=== PATIENT | male | born 1965 | race Caucasian/White ===

== ENCOUNTER 2019-08-05 12:55 | Emergency (ER) | payer MEDICARE, MEDICAID ==
[2019-08-05] MEDS ORDERED: Sodium Chloride 0.9% 10 ML Syringe FLUSH PRN (13:25)
[2019-08-05] MEDS ORDERED: Midazolam 1 MG/ML 2 ML SDV IVPUSH ONE (13:25)
[2019-08-05] MEDS ORDERED: Sodium Chloride 0.9% 1,000 ML IV ONE (13:25)
[2019-08-05] MEDS ORDERED: Succinylcholine 200 MG/10 ML MDV IV ONE (13:27)
[2019-08-05] MEDS ORDERED: Etomidate 2 MG/ML 20 ML SDV IVPUSH ONE (13:27)
[2019-08-05] MEDS ORDERED: ePHEDrine 50 MG/ML SDV IVPUSH ONE ×2 (13:27→13:29)
--- NOTE | 2019-08-05 13:29 | EDM.PDOC ---
ED HPI GENERAL MEDICAL PROBLEM - General Chief Complaint: Respiratory Problem Stated Complaint: Respiratory distress Time Seen by Provider: 08/05/19 13:00 Source of Information: Reports: EMS, [facility] Records History Limitations: Reports: Respiratory Distress - History of Present Illness INITIAL COMMENTS - FREE TEXT/NARRATIVE: 53 YO WM arrived by EMS after suspected aspiration at lunch today from [facility]. Pt had initial SaO2-70% on NRB @15L upon arrival to ER. Pt in respiratory distress with initial BP 70/30's. Pt given ephedrine 10mg IV push x 2- BP improved to 100/60. Pt intubated with a 6.0 ET tube after attempt with 8 and 7 were unsuccessful due to tracheal stenosis. Pt afebrile. SaO2 100% BP still low so dopamine drip was started. Pt given 2mg Versed for sedation. Onset: Sudden Severity: Severe Improves with: Reports: None Worsens with: Reports: None Associated Symptoms: Reports: Cough, Shortness of Breath ED ROS GENERAL - Review of Systems Review Of Systems: See Below Constitutional: Reports: No Symptoms HEENT: Reports: No Symptoms Respiratory: Reports: Shortness of Breath Cardiovascular: Reports: Blood Pressure Problem Endocrine: Reports: No Symptoms GI/Abdominal: Reports: No Symptoms : Reports: No Symptoms Musculoskeletal: Reports: No Symptoms Skin: Reports: No Symptoms ED EXAM, GENERAL - Physical Exam Exam: See Below Exam Limited By: Respiratory Distress General Appearance: Alert, Anxious Head: Atraumatic, Normocephalic Neck: Normal Inspection, Supple, Non-Tender, Full Range of Motion Respiratory/Chest: Respiratory Distress, Decreased Breath Sounds Cardiovascular: Normal Peripheral Pulses, Regular Rate, Rhythm, No Edema, No Gallop, No JVD, No Murmur, No Rub GI/Abdominal: Normal Bowel Sounds, Soft, Non-Tender, No Organomegaly, No Distention, No Abnormal Bruit, No Mass Back Exam: Normal Inspection, Full Range of Motion, NT Extremities: Normal Inspection, Normal Range of Motion, Non-Tender, Normal Capillary Refill, No Pedal Edema Neurological: Alert, CN II-XII Intact Psychiatric: Normal Affect, Normal Mood Skin Exam: Warm, Dry, Intact, Normal Color, No Rash Lymphatic: No Adenopathy ED RESPIRATORY PROCEDURES - Endotracheal Intubation Time of Intubation: 13:00 ET Intubation Indication: Respiratory Failure Preparation: Suction, Balloon Tested, BVM Set Up, Difficult Airway Equip Pre-Oxygenation: Assisted with BVM, 100% FiO2 Anesthesia Meds: Etomidate, Succinylcholine Placement: Orotracheal Cords Visualized: Grade 1 ETT Size In mm: 6 Number of Attempts: 2 Confirmed By: CO2 Indicator, Bilateral Breath Sounds, Chest Xray Tube Secured By: By Provider Course - Orders/Labs/Meds Orders: Active Orders 24 hr Category Date Time Status CULTURE BLOOD [BC] Stat Lab 08/05/19 13:25 Ordered CULTURE BLOOD [BC] Stat Lab 08/05/19 13:25 Ordered DOPamine/Dextrose 5%-Water [DOPamine in D5W 400 MG/250 Med 08/05/19 13:30 Active ML] 400 mg in 250 ml IV TITRATE Sodium Chloride 0.9% [Saline Flush] Med 08/05/19 13:25 Active 10 ml FLUSH Q8HR PRN Blood Culture x2 Reflex Set [OM.PC] Stat Ot 08/05/19 13:25 Ordered Saline Lock Insert [OM.PC] Stat Ot 08/05/19 13:25 Ordered Severe Sepsis Onset Time [OM.PC] Stat Oth 08/05/19 13:25 Ordered Medication Orders Dopamine HCl/Dextrose (Dopamine In D5w 400 Mg/250 Ml) 400 mg in 250 mls @ 5.925 mls/hr IV TITRATE NICK; Protocol Sodium Chloride (Saline Flush) 10 ml FLUSH Q8HR PRN PRN Reason: keep vein open Labs: Laboratory Tests 08/05/19 08/05/19 08/05/19 Range/Units 13:10 13:10 13:10 WBC 8.90 (5.00-10.00) 10^3/uL RBC 4.00 L (4.50-6.00) 10^6/uL Hgb 14.2 (13.0-17.0) g/dL Hct 43.2 (40.0-52.0) % MCV 108.0 H (82.0-92.0) fL MCH 35.5 H (27.0-31.0) pg MCHC 32.9 (32.0-36.0) g/dL RDW 13.8 (11.5-14.5) % Plt Count 213 (150-400) 10^3/uL MPV 9.6 (7.4-10.4) fL Immature Gran % (Auto) 0.9 (0.0-5.0) % Neut % (Auto) 79.9 H (50.0-70.0) % Lymph % (Auto) 14.4 L (20.0-40.0) % [place] % (Auto) 4.0 (2.0-8.0) % Eos % (Auto) 0.6 L (1.0-3.0) % Baso % (Auto) 0.2 (0.0-1.0) % Neut # (Auto) 7.11 H (2.50-7.00) 10^3/uL Lymph # (Auto) 1.28 (1.00-4.00) 10^3/uL [place] # (Auto) 0.36 (0.10-0.80) 10^3/uL Eos # (Auto) 0.05 L (0.10-0.30) 10^3/uL Baso # (Auto) 0.02 (0.00-0.10) 10^3/uL Immature Gran # (Auto) 0.08 (0.00-0.50) 10^3/uL Sodium 147 H (136-145) mmol/L Potassium 4.5 (3.3-5.3) mmol/L Chloride 108 (98-115) mmol/L Carbon Dioxide 28.9 (21.0-32.0) mmol/L Anion Gap 14.6 (5-15) mmol/L BUN 23 (6-25) mg/dL Creatinine 1.20 H (0.51-1.17) mg/dL Est Cr Clr Drug Dosing TNP Estimated GFR (MDRD) > 60 mL/min Glucose 120 H (75 - 99) mg/dL Lactic Acid 1.7 (0.4-2.0) mmol/L Calcium 8.8 (8.7-10.3) mg/dL Total Bilirubin 0.6 (0.2-1.0) mg/dL AST 25 (15-37) U/L ALT 26 (12-78) U/L Alkaline Phosphatase 99 (46-116) IU/L Total Protein 6.6 (6.4-8.2) g/dL Albumin 3.02 (3.00-4.80) g/dL Specimen Type Urine Color (YELLOW) Urine Appearance (CLEAR) Urine pH (5.0-9.0) Ur Specific [place] (1.005-1.030) Urine Protein (NEGATIVE) mg/dL Urine Glucose (UA) (NEGATIVE) mg/dL Urine Ketones (NEGATIVE) mg/dL Urine Occult Blood (NEGATIVE) Urine Nitrite (NEGATIVE) Urine Bilirubin (NEGATIVE) Urine Urobilinogen (0.2-1.0) E.U./dL Ur Leukocyte Esterase (NEGATIVE) Urine RBC (0-5) /HPF Urine WBC (0-5) /HPF Ur Epithelial Cells /LPF Urine Bacteria (NONE TO FEW) /HPF 08/05/19 Range/Units 13:50 WBC (5.00-10.00) 10^3/uL RBC (4.50-6.00) 10^6/uL Hgb (13.0-17.0) g/dL Hct (40.0-52.0) % MCV (82.0-92.0) fL MCH (27.0-31.0) pg MCHC (32.0-36.0) g/dL RDW (11.5-14.5) % Plt Count (150-400) 10^3/uL MPV (7.4-10.4) fL Immature Gran % (Auto) (0.0-5.0) % Neut % (Auto) (50.0-70.0) % Lymph % (Auto) (20.0-40.0) % [place] % (Auto) (2.0-8.0) % Eos % (Auto) (1.0-3.0) % Baso % (Auto) (0.0-1.0) % Neut # (Auto) (2.50-7.00) 10^3/uL Lymph # (Auto) (1.00-4.00) 10^3/uL [place] # (Auto) (0.10-0.80) 10^3/uL Eos # (Auto) (0.10-0.30) 10^3/uL Baso # (Auto) (0.00-0.10) 10^3/uL Immature Gran # (Auto) (0.00-0.50) 10^3/uL Sodium (136-145) mmol/L Potassium (3.3-5.3) mmol/L Chloride (98-115) mmol/L Carbon Dioxide (21.0-32.0) mmol/L Anion Gap (5-15) mmol/L BUN (6-25) mg/dL Creatinine (0.51-1.17) mg/dL Est Cr Clr Drug Dosing Estimated GFR (MDRD) mL/min Glucose (75 - 99) mg/dL Lactic Acid (0.4-2.0) mmol/L Calcium (8.7-10.3) mg/dL Total Bilirubin (0.2-1.0) mg/dL AST (15-37) U/L ALT (12-78) U/L Alkaline Phosphatase (46-116) IU/L Total Protein (6.4-8.2) g/dL Albumin (3.00-4.80) g/dL Specimen Type [place] Urine Color Yellow (YELLOW) Urine Appearance Slightly cloudy H (CLEAR) Urine pH 6.0 (5.0-9.0) Ur Specific [place] 1.025 (1.005-1.030) Urine Protein Trace H (NEGATIVE) mg/dL Urine Glucose (UA) Negative (NEGATIVE) mg/dL Urine Ketones Negative (NEGATIVE) mg/dL Urine Occult Blood Trace-intact H (NEGATIVE) Urine Nitrite Negative (NEGATIVE) Urine Bilirubin Small H (NEGATIVE) Urine Urobilinogen 0.2 (0.2-1.0) E.U./dL Ur Leukocyte Esterase Negative (NEGATIVE) Urine RBC 10-20 H (0-5) /HPF Urine WBC 0-5 (0-5) /HPF Ur Epithelial Cells Few /LPF Urine Bacteria Few (NONE TO FEW) /HPF Meds: Medications Generic Name Dose Route Start Last Admin Trade Name Kayy PRN Reason Stop Dose Admin Dopamine HCl/Dextrose 400 mg in 250 mls @ 5.925 mls/hr 08/05/19 13:30 Dopamine In D5w 400 Mg/250 Ml IV TITRATE NICK Protocol 2 MCG/KG/MIN Sodium Chloride 10 ml 08/05/19 13:25 Saline Flush FLUSH Q8HR PRN keep vein open Discontinued Medications Generic Name Dose Route Start Last Admin Trade Name Freq PRN Reason Stop Dose Admin Ephedrine Sulfate 10 mg 08/05/19 13:27 Ephedrine Sulfate IVPUSH 08/05/19 13:28 ONETIME ONE Ephedrine Sulfate 10 mg 08/05/19 13:29 Ephedrine Sulfate IVPUSH 08/05/19 13:30 ONETIME ONE Etomidate 20 mg 08/05/19 13:27 Amidate IVPUSH 08/05/19 13:28 ONETIME ONE Sodium Chloride 1,000 mls @ 1,000 mls/hr 08/05/19 13:25 Normal Saline IV 08/05/19 14:24 BOLUS ONE Ketamine HCl Confirm 08/05/19 13:35 Ketalar Administered 08/05/19 13:36 Dose 200 mg .ROUTE .STK-MED ONE Succinylcholine Chloride 120 mg 08/05/19 13:27 Quelicin IV 08/05/19 13:28 ONETIME ONE Departure - Departure Time of Disposition: 14:08 Disposition: DC/Tfer to [facility] Preliminary Cause of *Q: Respiratory Failure Condition: Critical Clinical Impression: Interstitial pneumonia Respiratory failure Qualifiers: Chronicity: acute Respiratory failure complication: hypoxia Qualified Code(s): J96.01 - Acute respiratory failure with hypoxia - Discharge Information Referrals: Elana Monae MD [Primary Care Provider] - Forms: ED Department Discharge, Interfacility Transfer [facility] Sepsis Event Note - Focused Exam Date Exam was Performed: 08/05/19 Time Exam was Performed: 14:44 - My Orders Last 24 Hours: My Active Orders 08/05/19 13:25 CULTURE BLOOD [BC] Stat CULTURE BLOOD [BC] Stat Sodium Chloride 0.9% [Saline Flush] 10 ml FLUSH Q8HR PRN Blood Culture x2 Reflex Set [OM.PC] Stat Saline Lock Insert [OM.PC] Stat Severe Sepsis Onset Time [OM.PC] Stat 08/05/19 13:30 DOPamine/Dextrose 5%-Water [DOPamine in D5W 400 MG/250 ML] 400 mg in 250 ml IV TITRATE - Assessment/Plan Last 24 Hours: My Active Orders 08/05/19 13:25 CULTURE BLOOD [BC] Stat CULTURE BLOOD [BC] Stat Sodium Chloride 0.9% [Saline Flush] 10 ml FLUSH Q8HR PRN Blood Culture x2 Reflex Set [OM.PC] Stat Saline Lock Insert [OM.PC] Stat Severe Sepsis Onset Time [OM.PC] Stat 08/05/19 13:30 DOPamine/Dextrose 5%-Water [DOPamine in D5W 400 MG/250 ML] 400 mg in 250 ml IV TITRATE Assessment:: 1. Respiratory failure 2. bilateral interstitial pneumonia Plan: 1. transfer to [facility]- Dr Reagan 2. Pt transferred by [facility] 3. supportive care 4. dopamine at 10ug/hr gtt
[2019-08-05] MEDS ORDERED: DOPamine/Dextrose 5%-Water 400 MG/250 ML BAG IV SCH (13:30)
[2019-08-05] MEDS ORDERED: Rocuronium 50 MG/5 ML Vial IVPUSH ONE (13:33)
[2019-08-05] MEDS: Ketamine 200 MG/20 ML MDV ONE ×2 (13:37→16:53)
[2019-08-05] MEDS ORDERED: Ketamine 200 MG/20 ML MDV IVPUSH ONE (13:37)
--- NOTE | 2019-08-05 13:42 | CR ---
[id number] RAD/RAD Chest PA or AP 1V EXAM: SINGLE VIEW CHEST. INDICATION: SHORTNESS OF BREATH LINE PLACEMENT COMPARISON: NO PREVIOUS SIMILAR EXAM IS AVAILABLE FINDINGS: The patient is intubated There is an NG tube in the stomach There is no central line seen The right lung base is not entirely imaged Lucency is seen at the right lung base The possibility of a pneumothorax is not excluded There is an extensive bilateral interstitial pattern A repeat study is suggested Report called at the time of this dictation IMPRESSION: ET TUBE AND NG TUBE PLACED QUESTION OF PNEUMOTHORAX AT RIGHT LUNG BASE EXTENSIVE BILATERAL INFILTRATES Kashmir Salas MD 08/05/19 [id number] Thank you for allowing us to participate in the care of your patient.
[2019-08-05 13:59] LABS: ANION GAP 14.6 mmol/L (5-15); CHLORIDE,CL 108 mmol/L (98-115); SODIUM,NA 147 mmol/L (136-145)
--- NOTE | 2019-08-05 14:16 | CR ---
[id number] RAD/RAD Chest PA or AP 1V EXAM: SINGLE VIEW CHEST. INDICATION: CHECK FOR PNEUMOTHORAX RIGHT LUNG BASE COMPARISON: CORRELATION IS MADE WITH THE EARLIER EXAM TODAY FINDINGS: The NG tube has been pulled back to the GE junction There is no pneumothorax The endotracheal tube is seen Extensive bilateral infiltrates are identified Report called at time of dictation IMPRESSION: RETRACTION OF NG TUBE TO GE JUNCTION NO PNEUMOTHORAX PERSISTENT BILATERAL INFILTRATES ET TUBE PRESENT Kashmir Salas MD 08/05/19 [id number] Thank you for allowing us to participate in the care of your patient.
== END 2019-08-05 14:27 ==
LOC: KA.ED 12:55
DX: J96.01 Acute respiratory failure with hypoxia (principal); J84.9 Interstitial pulmonary disease, unspecified
CPT/HCPCS: 31500; 36415; 51702; 71045; 80053; 81001; 83605; 85025; 96365; 96375; 99284; 99285; J0330; J1265; J2250; J3490; J7030; Q3014